=== PATIENT | female | born 1960 | race Caucasian/White ===

== ENCOUNTER → 2019-04-03 10:13 | Outpatient (BNVA) | payer MEDICARE, SELFPAY | PROVIDERS: Family Provider Nurse Practitioner; PCP Nurse Practitioner; Visit Provider Nurse Practitioner | DX: M54.40 Lumbago with sciatica, unspecified side (principal); M25.511 Pain in right shoulder; F17.210 Nicotine dependence, cigarettes, uncomplicated; Z79.891 Long term (current) use of opiate analgesic | CPT/HCPCS: 99214 ==

== ENCOUNTER → 2019-07-28 08:12 | Outpatient (BNVA) | payer MEDICARE, SELFPAY | PROVIDERS: Family Provider Nurse Practitioner; PCP Family Medicine; Visit Provider Anesthesiology | DX: M54.41 Lumbago with sciatica, right side (principal); M54.42 Lumbago with sciatica, left side; F17.210 Nicotine dependence, cigarettes, uncomplicated; Z79.891 Long term (current) use of opiate analgesic | CPT/HCPCS: 99213; 99214 ==

== ENCOUNTER 2019-08-03 07:07 | Outpatient (CLI) | payer MEDICARE, SELFPAY ==
--- NOTE | 2019-08-03 13:03 | PFTS_ITS ---
Date of Study:08/03/19 Date of Dictation: MECHANICS: Forced vital capacity (FVC) is normal. Forced expiratory volume in one second (FEV1) is normal. FEV1/FVC is normal. FLOW VOLUME LOOP: Normal. LUNG VOLUMES: Total lung capacity (TLC) is normal. Residual volume (RV) is normal. DIFFUSING CAPACITY FOR CARBON MONOXIDE: Mildly reduced. INTERPRETATION: The pulmonary function tests are normal. There is no significant postbronchodilator response. Lung volumes are normal. Gas exchange (DLCO) is mildly reduced. MTDD
== END 2019-08-03 07:08 | disposition home or self-care (01) ==
LOC: RT 07:12
PROVIDERS: Family Provider Nurse Practitioner; PCP Family Medicine; Visit Provider Internal Medicine Critical Care Medicine
DX: J44.9 Chronic obstructive pulmonary disease, unspecified (principal)
CPT/HCPCS: 94060; 94726; 94729; G0297; J7611

== ENCOUNTER 2019-08-03 07:14 | Outpatient (CLI) | payer MEDICARE, SELFPAY ==
--- NOTE | 2019-08-03 07:24 | CT_ITS ---
WS: [id number] CT LUNG CANCER SCREENING DLP: 66.36 mGy.cm DIvol: 1.97 mGy CLINICAL INFORMATION SCREENING VISIT: Baseline COMPARISON: 09/04/2008 FINDINGS Diagnostic quality: Satisfactory Comments: None. Lung Nodules: 3 adjacent nodules LEFT upper lobe each measuring 2 mm, images 42, 44 of series 3. Rounded solid nodule measuring 5 mm RIGHT lower lobe adjacent to the diaphragm, image 250 of series 3 . Lungs: Hyperinflated lungs with no endobronchial lesions or groundglass opacifications. Heart: Normal size heart with mild increased epicardial fat. Other findings: No adenopathy. Very mild atherosclerosis of aorta. No aneurysm. Pulmonary artery size is equal to the aorta. There are a few scattered coronary artery calcifications. Small hiatal hernia . Prior cholecystectomy. Mild thoracic spondylosis. CT/CT lung screening [id number] IMPRESSION: LUNG-RADS: 2-Benign Appearance or Behavior FOLLOW UP: 12 Month: Continue annual screening with LDCT
== END 2019-08-03 07:15 | disposition home or self-care (01) ==
LOC: RAD 07:16
PROVIDERS: Family Provider Nurse Practitioner; PCP Family Medicine; Visit Provider Internal Medicine Critical Care Medicine
DX: Z12.2 Encounter for screening for malignant neoplasm of respiratory organs (principal); F17.210 Nicotine dependence, cigarettes, uncomplicated
CPT/HCPCS: G0297

== ENCOUNTER → 2019-10-27 09:12 | Outpatient (BNVA) | payer MEDICARE, SELFPAY | PROVIDERS: Family Provider Nurse Practitioner; PCP Family Medicine; Visit Provider Anesthesiology | DX: M54.41 Lumbago with sciatica, right side (principal); M54.42 Lumbago with sciatica, left side; F17.210 Nicotine dependence, cigarettes, uncomplicated; Z79.891 Long term (current) use of opiate analgesic; Z71.6 Tobacco abuse counseling | CPT/HCPCS: 99214 ==

== ENCOUNTER → 2019-12-22 07:58 | Outpatient (BNVA) | payer MEDICARE, SELFPAY | PROVIDERS: Family Provider Nurse Practitioner; PCP Family Medicine; Visit Provider Anesthesiology | DX: M54.42 Lumbago with sciatica, left side (principal); M54.41 Lumbago with sciatica, right side; Z79.891 Long term (current) use of opiate analgesic; F17.210 Nicotine dependence, cigarettes, uncomplicated; Z71.6 Tobacco abuse counseling | CPT/HCPCS: 99214 ==

== ENCOUNTER → 2020-02-09 09:52 | Outpatient (BNVA) | payer MEDICARE, SELFPAY | PROVIDERS: Family Provider Nurse Practitioner; PCP Family Medicine; Visit Provider Anesthesiology | DX: G89.29 Other chronic pain (principal); M54.42 Lumbago with sciatica, left side; M54.41 Lumbago with sciatica, right side; F17.210 Nicotine dependence, cigarettes, uncomplicated; Z79.891 Long term (current) use of opiate analgesic; Z71.6 Tobacco abuse counseling | CPT/HCPCS: 99213; 99214 ==

== ENCOUNTER → 2020-04-19 07:53 | Outpatient (BNVA) | payer MEDICARE, SELFPAY | PROVIDERS: Family Provider Nurse Practitioner; PCP Family Medicine; Visit Provider Anesthesiology | DX: G89.29 Other chronic pain (principal); M54.41 Lumbago with sciatica, right side; M54.42 Lumbago with sciatica, left side; F17.210 Nicotine dependence, cigarettes, uncomplicated; Z79.891 Long term (current) use of opiate analgesic; Z71.6 Tobacco abuse counseling | CPT/HCPCS: 99213; 99214 ==

== ENCOUNTER → 2020-05-31 08:31 | Outpatient (BNVA) | payer MEDICARE, SELFPAY | PROVIDERS: Family Provider Nurse Practitioner; PCP Family Medicine; Referring Provider Nurse Practitioner Family; Visit Provider Orthopaedic Surgery | DX: M17.0 Bilateral primary osteoarthritis of knee (principal) | CPT/HCPCS: 73560; 73565 ==

== ENCOUNTER → 2020-06-22 07:59 | Outpatient (BNVA) | payer MEDICARE, SELFPAY | PROVIDERS: Family Provider Nurse Practitioner; PCP Family Medicine; Visit Provider Anesthesiology | DX: G89.29 Other chronic pain (principal); M54.41 Lumbago with sciatica, right side; M54.42 Lumbago with sciatica, left side; M25.569 Pain in unspecified knee; F17.210 Nicotine dependence, cigarettes, uncomplicated; Z79.891 Long term (current) use of opiate analgesic | CPT/HCPCS: 99214 ==

== ENCOUNTER → 2020-08-15 10:37 | Outpatient (BNVA) | payer MEDICARE, SELFPAY | PROVIDERS: Family Provider Nurse Practitioner; PCP Family Medicine; Visit Provider Orthopaedic Surgery | DX: Z01.812 Encounter for preprocedural laboratory examination (principal); Z20.822 Contact with and (suspected) exposure to COVID-19 | CPT/HCPCS: 87635 ==

== ENCOUNTER → 2020-08-18 08:09 | Outpatient (BNVA) | payer MEDICARE, SELFPAY | PROVIDERS: Family Provider Nurse Practitioner; PCP Family Medicine; Visit Provider Nurse Practitioner | DX: G89.29 Other chronic pain (principal); M54.42 Lumbago with sciatica, left side; M25.561 Pain in right knee; M25.511 Pain in right shoulder; F17.210 Nicotine dependence, cigarettes, uncomplicated; Z79.891 Long term (current) use of opiate analgesic; Z71.6 Tobacco abuse counseling | CPT/HCPCS: 99214 ==

== ENCOUNTER 2020-08-22 11:01 | Observation (INO) | payer MEDICARE, SELFPAY ==
[2020-08-15 10:05] VITALS: BMI 41.1
--- NOTE | 2020-08-15 10:39 | ANES.PREANE2 ---
Pre-Anesthetic Assessment Pre-Anesthetic Assessment: Height/Weight: Height 1.55 m Weight 98.883 kg Preop Diagnosis: knee pain Proposed Procedure: Operation Date: 08/22/20 09:30 Proposed Procedures p Total Knee Arthroplasty 53863 M17.11(Right) - Ld Sullivan MD Familial anesthetic complications: PONV Social: Social History: Tobacco and No alcohol Exam: Pre-Anes Outpt Exam: alert, oriented x 3, clear to auscultation bilaterally and regular rate & rhythm Airway: Cervical ROM: WNL MP: 2 Dentition: False Pulmonary: Pulmonary: COPD (2 L NC at night, up to 3 L at times) CV/HEM: CV/HEM: Angina (Stable) (atypical) Comments: Dr. Quintanilla: Since the last visit, patient had a myocardial perfusion imaging and echocardiogram. The echocardiogram revealed normal LV size ejection fraction with no significant wall motion normalities. The myocardial perfusion imaging revealed no evidence of ischemia. Metabolic: Metabolic: DM, Hyperlipidemia and Morbid obesity Anesthetic Plan: ASA status: 3 Anesthesia: Regional (specify below) (spinal + adductor nerve block) Risk of > 500 ml blood loss (7ml/kg in children): No PFSH Anesthesia PFSH: Medical History (Updated 06/22/20 @ 08:24 by Yevs Parsons MD) Atypical chest pain Chronic knee pain Chronic right shoulder pain COPD (chronic obstructive pulmonary disease) Diabetes mellitus Dyslipidemia Encounter for long-term opiate analgesic use Low back pain with radiation Smoker SOB (shortness of breath) Surgical History Hx of cholecystectomy Family History Other Cancer Diabetes Family history of premature coronary artery disease Hypertension Social History Smoking and tobacco status: current every day smoker cigarettes Packs smoked per day: 0.5 Years cigarettes smoked: 50 Alcohol intake: never Lives independently: Yes Household members: family Marital status: Current occupational status: disabled History of recent travel: No Current gender identity: Female Data Anesthesia Cardiac Studies: No Data to Display
[2020-08-15 10:47] LABS: Basophils # 0.1 10^3/uL (0.0-0.1); Basophils % 0.8 %; Eosinophils # 0.3 10^3/uL (0.0-0.8); Eosinophils % 2.7 %; Hematocrit 42.6 % (37.0-47.0); Lymphocytes # 3.6 10^3/uL (0.8-4.8); Lymphocytes % 38.3 %; Mean Corpuscular HGB Conc 32.9 g/dL (30.0-36.0); Mean Corpuscular Hemoglobin 30.5 pg (28.0-34.0); Mean Corpuscular Volume 92.8 fL (81-99); Mean Platelet Volume 10.1 fL (7.4-10.4); Monocytes # 0.5 10^3/uL (0.2-0.9); Neutrophils # 4.91 10^3/uL (1.8-7.7); Neutrophils % 52.7 %; Nucleated Red Blood Cells % 0 %; Platelet Count 194 10^3/cmm (130-400); Red Blood Count 4.59 10^6/uL (4.1-5.3); Red Cell Distribution Width 13.3 % (12.1-15.1); White Blood Count 9.3 10^3/uL (4.0-10.0)
[2020-08-15 11:10] LABS: Anion Gap 11.4 (5-19); Blood Urea Nitrogen 14 mg/dL (8-23); Calcium 8.7 mg/dL (8.5-10.5); Carbon Dioxide 28 mmol/L (22-29); Chloride 104 mmol/L (98-107); Glomerular Filtration Rate 85.4 mL/min (90-130); Glucose 125 mg/dL (65-115); Osmolality Calculated 290 mOsm/kg (285-295); Potassium 4.4 mmol/L (3.5-5.1); Sodium 139 mmol/L (136-145)
[2020-08-22] VITALS (21 sets, daily range): BP systolic 95–143; BP diastolic 61–87; PULSE 62–97; RESP 16–20; TEMP 36.2–36.7; O2SAT 91–100
[2020-08-22 08:30] LABS: Glucose Point of Care 108 mg/dL (70-110)
[2020-08-22] MEDS: sodium chloride 0.9% 1,000 ML 30 ML IV (08:32)
[2020-08-22] MEDS: gabapentin 300 mg Capsule PO (08:33)
[2020-08-22] MEDS: CELEcoxib 200 mg Capsule 400 MG PO (08:33)
[2020-08-22] MEDS: acetaminophen 500 mg Tablet 1000 MG PO ×3 (08:34→23:48)
[2020-08-22] MEDS: oxyCODONE 20 mg ER (12 HR) Tablet PO (08:34)
[2020-08-22] MEDS: scopolamine 1.5 Patch 1 PATCH TRANSDERMA (09:05)
--- NOTE | 2020-08-22 10:13 | ANES.PROC ---
Anesthesia Procedures Procedure/Date: 08/22/20 Nerve Block ^: Nerve Block 1: Main Anesthesia: spinal anesthesia block Time Out Performed: Yes Consent: requested by attending/covering physician, from patient, risks and benefits reviewed and patient agrees to proceed Nerve block location: adductor canal (right) Anesthesia monitors applied: pulse oximetry, EKG, BP cuff and oxygen Nerve block position: supine Anesthetic Used: ropivicaine 0.5% Amount of anesthesia used (mL): 20 Ultrasound used to: recognize landmarks Nerve Stimulator Used?: No Interscalene/Femoral BLK: 4 stimuplex 21 g needle used for position and inplane approach and visualize local anesthetic spread Injection: neg aspiration of heme Patient Tolerated Procedure: well
[2020-08-22] MEDS: tranexamic acid 1,000 mg/10mL SDV 1000 MG IRRIGATION (10:33)
[2020-08-22] MEDS: EPINEPHrine 1 mg/mL INJ XX (10:34)
[2020-08-22] MEDS: ketorolac 30 mg/mL INJ XX (10:35)
--- NOTE | 2020-08-22 10:51 | XRR_ITS ---
PROCEDURE INFORMATION: Exam: XR Right Knee Exam date and time: 08/22/2020 10:51 AM Age: 60 years old Clinical indication: Device placement; Joint replacement hardware; Prior surgery; Surgery date: Post-operative (0-2 days); Surgery type: Right total knee arthroplasty TECHNIQUE: Imaging protocol: XR Right knee. Views: 1 or 2 views. COMPARISON: CR XR knees AP WB w BI lmt ORTH 05/31/2020 8:38 AM FINDINGS: Bones/joints: Right knee replacement. No fracture or significant effusion. Soft tissues: Normal. XR/XR knee RT 1-2V [id number] IMPRESSION: Satisfactory appearance status post total knee replacement.
--- NOTE | 2020-08-22 10:52 | P.OP_ITS ---
Operative Report Date of procedure: August 22, 2020 Pre-op Diagnosis: Osteoarthritis Right knee Post-op diagnosis: same Post-op Findings: Same Procedure Done: Right total knee arthroplasty Implants: Sonny total knee arthroplasty components were used includin) Size 3 triathalon cruciate retaining femoral component 2) Size 3 Tritanium tibial component 3) Size 3/11 mm thickness CR tibial bearing insert Pathology: none sent Surgeon: Ld Sullivan Anesthesia: Nerve Block (Spinal, adductor canal block) Estimated blood loss (mL): 100 Complications: None Findings: The patient had severe eburnation to wear over the medial femoral condyle and medial tibial plateau Condition: stable Disposition: PACU Brief History: The patient is a 60-year-old female with end-stage osteoarthritis of the right knee. She had significant functional limitations that she could walk no more than a block. Her quality life is affected and she can no longer play with grandchildren. She had failed conservative measures including pain medications. Total knee replacement was chosen to improve pain and function Procedure: The patient was taken to the operating room. Patient was given 1 g of tranexamic acid . The above anesthesia provided by the anesthesia service. A timeout was performed. The patient was prepped and draped in the usual fashion with the lower extremity exposed. A anterior incision was made, midline , from a point proximal to the patella to the distal tibial tubercle. The knee was entered through a medial parapatellar approach. The patella could be displaced laterally and the knee flexed. The patellar fat pad was resected to provide better visibility. Retractors were placed medially and laterally adjacent to the tibial plateau. The femoral canal was drilled in line with the longitudinal axis of the femur. Intramedullary femoral guide for used to make a distal femoral cut in 5 degrees of valgus, resecting 8 mm from the more prominent condyle. Next the extra medullary tibial guide was placed in alignment with the longitudinal axis of the tibia. The cutting guides were set to remove just over 9 mm from the high tibial plateau. The proximal tibia was then cut. The femoral measuring guide was then placed over the distal femur. Rotation was verified checking the relationship of the guide to the condyle and the trochlear groove. The femur was measured and cut for the desired femoral component. The desired tibial baseplate was then chosen. A trial reduction with the femur tibial baseplate and polyethylene was done, assuring that the knee was stable throughout full motion. Ligament balancing nothing more than released the deep medial collateral ligament.The tibia was prepared for the tibial baseplate. The patella displayed minimal wear and articulated well with the trial femoral and tibial components. A decision was made not to resurface the patella. Surfaces were cleaned with a gentamicin/tranexamic acid solution. The femur tibia and patella were then [] into place. The posterior capsule and collateral ligaments were then injected with a solution of 100 mL of 0.2% ropivacaine, 1 mL of a 1:1000 epinephrine solution, and 30 mg of Toradol. Final polyethylene component was then snapped into place into the tibia. The tourniquet was deflated. The tranxanemic acid was left contact with the knee for 5 minutes before the knee was irrigated with saline. The extensor retinaculum was closed with a running 1 Stratafix.. The subcutaneous tissues were closed with 2-0 Vicryl and the skin was closed with a running 3-0 Stratafix. The wound was covered with a Dermabond Prinio dressing. It was covered with 4xrs and a compressive Tubigauae was applied. The patient was taken to recovery room in stable condition.
[2020-08-22] MEDS: ondansetron 2 mg/ML SDV 2 mL 4 MG IVP (11:07)
--- NOTE | 2020-08-22 11:19 | SUR.PHASEI ---
1054 PT AWAKE ALERT ON RA GOOD RESP PT TALKATIVE RIGHT KNEE D/I FIRST ICE TO SITE, X RAY DONE. FAMILY NOTIFIED BY DR GILLIAM 1113 PT ON 3LNC TO KEEPS SATS OVER 90% PT SPINAL LEVEL AT T-12 HOB AT 30 DEGREES, VSS.
--- NOTE | 2020-08-22 11:34 | SUR.PHASEI ---
PT AWAKE ALERT , STILL HOLDING PT TO GIVE REPORT.
--- NOTE | 2020-08-22 13:08 | P.HP_ITS ---
Same Day Surgery H&P Indication for Procedure/HPI DATE OF PROCEDURE: August 22, 2020 CHIEF COMPLAINT/INDICATIONFOR SURGICAL PROCEDURE: 60-year-old female with osteoarthritis right knee unresponsive to conservative measures. She describes significant functional limitations including inability to walk on more than a block and play with her grandchildren. She is admitted for elective right total knee arthroplasty to improve pain and function PREOP DIAGNOSIS: Osteoarthritis Right knee PLANNED PROCEDRUE: Operation Date: 08/22/20 09:30 Proposed Procedures p Total Knee Arthroplasty 29360 M17.11(Right) - Ld Sullivan MD Medications/Allergies* Home Medications Medication Instructions Recorded Confirmed Type bumetanide 1 mg tablet 1 mg PO DAILY tab 03/16/19 08/22/20 History cetirizine 10 mg capsule 10 mg PO QDAY 03/16/19 08/22/20 History lisinopril 2.5 mg tablet 2.5 mg PO QDAY 03/16/19 08/22/20 History methocarbamol 750 mg tablet 750 mg PO TID 03/16/19 08/22/20 History montelukast 10 mg tablet 10 mg PO .BEDTIME tab 03/16/19 08/22/20 History spironolactone 50 mg tablet 50 mg PO BID 03/16/19 08/22/20 History albuterol sulfate 2.5 mg INHALATION Q6H 04/03/19 08/18/20 History atorvastatin 20 mg tablet 40 mg PO QDAY tab 04/03/19 08/22/20 History Allergies/Adverse Reactions Allergy/AdvReac Type Severity Reaction Status Date / Time codeine Allergy NAUSEA, Verified 08/22/20 08:05 VOMITING fentanyl Allergy DYSPNEA, Verified 08/22/20 08:05 SOB morphine Allergy HX OF Verified 08/22/20 08:05 OVERDOSE tramadol Allergy NAUSEA, Verified 08/22/20 08:05 VOMITING Pertinent History/Comorbid Conditions* Medical History (Updated 06/22/20 @ 08:24 by Yves Parsons MD) Atypical chest pain Chronic knee pain Chronic right shoulder pain COPD (chronic obstructive pulmonary disease) Diabetes mellitus Dyslipidemia Encounter for long-term opiate analgesic use Low back pain with radiation Smoker SOB (shortness of breath) Surgical History (Updated 04/03/19 @ 11:52 by CAMMIE Cabrales) Hx of cholecystectomy Family History (Updated 03/16/19 @ 10:28 by Yesy Pabon RN) Diabetes Family history of premature coronary artery disease Cancer Hypertension Social History Smoking and tobacco status: current every day smoker (1 pck) cigarettes Packs smoked per day: 0.5 Years cigarettes smoked: 50 Alcohol intake: never Lives independently: Yes Household members: family Marital status: Current occupational status: disabled History of recent travel: No Current gender identity: Female Pertinent Exam Findings alert, oriented x 3, clear to auscultation bilaterally, regular rate & rhythm and operative site marked Recommendations Surgery/Procedure today Coding Level of Care Code Acute Electronic Prepress Operator for Alec Luis
[2020-08-22] MEDS: atorvastatin 40 mg Tablet PO (14:19)
[2020-08-22] MEDS: lisinopril 2.5 mg Tablet PO (14:19)
--- NOTE | 2020-08-22 15:31 | ANE.PACU2 ---
Inpatient post-anesthesia follow up: Airway intact: Yes Vital signs: Temperature 98.0 F Pulse Rate 73 Respiratory Rate 18 Blood Pressure 112/66 Pulse Oximetry 95 Oxygen Delivery Me thod Room Air Oxygen Flow Rate 3 Fraction of Inspir ed Oxygen Hydration adequate: Yes Nausea and vomiting: No Pain level: 1 Mental status: Baseline
[2020-08-22] MEDS: oxyCODONE 5 mg IR Tab/Cap PO ×2 (16:39→23:47)
--- NOTE | 2020-08-22 18:30 | PC.NURSE ---
PATIENT WAS COMPLAINING THAT SHE FELT LIKE HER CATHETER WASN'T DRAINING PROPERLY. THIS NURSE FLUSHED PATIENT'S NG CATHETER. CATHETER FLUSHED EASILY AND I WAS ABLE TO DRAW BACK ALL THAT I PUT IN. CATHETER DRAINING WELL AT THIS TIME.
[2020-08-22] MEDS: sodium chloride 0.9% 1,000 ML 100 ML IV (19:22)
[2020-08-22] MEDS: sennosides-docusate Tablet 2 TAB PO (19:26)
[2020-08-22] MEDS: spironolactone 25 mg Tablet 50 MG PO (19:27)
[2020-08-22] MEDS: pregabalin 75 mg Capsule PO (20:54)
[2020-08-22] MEDS: CELEcoxib 200 mg Capsule PO (20:54)
[2020-08-22] MEDS: mupirocin oint 22 gm 1 APPLIC TOPICAL (20:54)
[2020-08-22] MEDS: methocarbamol 750 mg Tablet PO (20:54)
[2020-08-23] VITALS (7 sets, daily range): BP systolic 97–98; BP diastolic 56–62; PULSE 66–82; RESP 16–18; TEMP 36.7–36.9; O2SAT 93–95
[2020-08-23 02:41] LABS: Hemoglobin 11.7 g/dL (11.5-15.3)
[2020-08-23] MEDS: sodium chloride 0.9% 1,000 ML 100 ML IV (04:47)
[2020-08-23] MEDS: oxyCODONE 5 mg IR Tab/Cap PO (08:21)
[2020-08-23] MEDS: acetaminophen 500 mg Tablet 1000 MG PO (08:22)
[2020-08-23] MEDS: lisinopril 2.5 mg Tablet PO (08:59)
[2020-08-23] MEDS: sennosides-docusate Tablet 2 TAB PO (09:00)
[2020-08-23] MEDS: bumetanide 1 mg Tablet PO (09:00)
[2020-08-23] MEDS: spironolactone 25 mg Tablet 50 MG PO (09:01)
[2020-08-23] MEDS: CELEcoxib 200 mg Capsule PO (09:01)
[2020-08-23] MEDS: methocarbamol 750 mg Tablet PO (09:01)
[2020-08-23] MEDS: atorvastatin 40 mg Tablet PO (09:01)
[2020-08-23] MEDS: pregabalin 75 mg Capsule PO (09:02)
--- NOTE | 2020-08-23 09:44 | PC.CHAP ---
Pastoral Care Encounter/Spiritual Assessment Type of Contact [] Declined sr. media manager visit [] Patient/Family/Request visit [] Outpatient visit [] Follow-up visit [] Physician referral [] Code/Alert [x] Routine visit [] Staff referral [] Actively dying [] Patient sleeping [] Family support [] [] Out of room [] Palliative care [] [x] Receiving care in room [] Pre-surgical visit [] Trauma [] Long length of stay [] ICU visit [] Other: Relational/Emotional Strength [] Patient feels connected with others/family/visitors/staff [] Distress [] Loneliness/isolation [] Abandonment Spirituality of Patient [] Person of [place] [] Attends Confucianist of their [place] [] Believes in Prayer [] Reads Bible or Holiness materials [] There are Spiritual issues to be addressed Electric Track Switch Maintainer Interventions [] Prayer [] Active listening [] Non-anxious presence [] Spiritual/emotional support [] Crisis/trauma care [] Spiritual counseling [] Bereavement support [] Provided bereavement packet [] Provided Bible/devotional materials [] Provided toy/stuffed animal, coloring book to patient or family member [] Provided Communion [] Anointing/[place] [] Salvation [] Completed spiritual assessment [] Other: Impact on Illness or Injury [] Angry [] Fearful [] Anxious [] Often cries [] Exhaustion [] Unable to work [] Unable to attend roman catholic [] Unable to walk/stand [] Unable to read [] Unable to drive [] Unable to eat/drink [] Unable to sleep [] Unable to be with family [] Patient intubated [] Other: Summary Time spent with patient
--- NOTE | 2020-08-23 10:50 | PC.NURSE ---
Discharged 10:45 After Iv was discontinued pt dressed and transferred via wheelchair to family waiting at entrance Pt tolerated without difficulty
--- NOTE | 2020-08-23 12:25 | PM.DCS ---
Discharge Providers Date of Admission: 08/22/20 11:01 Date of Discharge: August 23, 2020 Attending Provider at Admission: Ld Sullivan MD Attending Provider at Discharge: Ld Sullivan MD Primary Care Provider: Reynold Begum MD Diagnoses at Discharge Discharge Diagnosis (1) Status post knee replacement: Status: Acute (2) Osteoarthritis of right knee: Status: Resolved Reason for Visit Reason for Visit: total knee arthoplasty Hospital Course Hospital Course Ms. Dubose was admitted after an elective right total knee arthroplasty. She did well postoperatively. She has begun on aspirin and foot pumps for DVT prophylaxis. She remained hemodynamically stable. She made excellent progress with therapy and was stable for discharge on the first postoperative day. Physical Exam Narrative: EXAM NARRATIVE: On the day of discharge his knee incision was clean. They had no drainage. There is minimal swelling in the thigh and knee and the calf. No distal neurovascular deficits were noted Urinary Catheter Management^: Reynoso: Cath Placed During This Visit: yes, but has since been removed by the nurse Reason for Continuing Indwelling Catheter: Decision to DC Catheter Urinary Catheter Date of Insertion: 08/22/20 Urinary Catheter Time of Insertion: 09:30 Date Urinary Catheter Removed: 08/23/20 Time Urinary Catheter Discontinued: 05:00 Discharge Data Data Completed and Pending: Completed Studies During Hospitalization Category Date Time Status XR knee RT 1-2V 7 3560 Routine Exams 08/22/20 10:51 Completed Labs from last 24 hours 08/23/20 02:07 Hgb 11.7 Vitals: Last Vital Signs Temp 98.1 F 08/23/20 03:49 Pulse 82 08/23/20 11:56 Resp 17 08/23/20 11:56 BP 98/56 08/23/20 03:49 Pulse Ox 93 08/23/20 11:56 Discharge Plan Discharge Patient Disposition: Home Condition: Stable Prescriptions: New celecoxib 200 mg Capsule 200 mg PO Q12H 14 Days Qty: 28 RF: 0 acetaminophen 500 mg Tablet 1,000 mg PO Q8H 14 Days Qty: 84 RF: 0 oxycodone 5 mg Tablet 5 mg PO Q4H PRN (Reason: Moderate Pain) 7 Days Qty: 30 RF: 0 aspirin 325 mg Tablet,Delayed Release (Dr/Ec) 325 mg PO DAILY Qty: 30 RF: 0 Continued bumetanide 1 mg tablet 1 mg PO DAILY RF: 0 Allergy Relief (cetirizine) 10 mg capsule 10 mg PO QDAY RF: 0 lisinopril 2.5 mg tablet 2.5 mg PO QDAY RF: 0 methocarbamol 750 mg tablet 750 mg PO TID RF: 0 spironolactone 50 mg tablet 50 mg PO BID RF: 0 montelukast 10 mg tablet 10 mg PO .BEDTIME RF: 0 atorvastatin 20 mg tablet 40 mg PO QDAY RF: 0 mupirocin 2 % ointment 1 applic topical BID Qty: 22 RF: 0 hydrocodone-acetaminophen 5-325 mg tablet 1 tab PO .5 times a day PRN (Reason: pain) 30 Days Qty: 150 RF: 0 albuterol sulfate 2.5 mg /3 mL (0.083 %) solution for nebulization 2.5 mg INHALATION Q6H RF: 0 pregabalin [Lyrica] 75 mg capsule 75 mg PO TID 30 Days Qty: 90 RF: 1 fluticasone propionate 50 mcg/actuation spray,suspension See Rx Instructions .ROUTE .COMPLEX Qty: 16 RF: 3 fluticasone propion-salmeterol [Advair Diskus] 250-50 mcg/dose blister with device 1 inh inhalation BID Qty: 60 RF: 3 Discharge Orders: Discharge Order (Routine); Ordered 08/23/20 Ordered By: Ld Sullivan Other Ambulatory Orders: DME: Walker (Order) Location: None Selected Ordered By: Ld Sullivan Referrals: Ld Sullivan MD [Physician] - 08/26/20 8:00 am Discharge Diet: Advance as tolerated Discharge Activity: Limit activity as instructed Patient Instructions: Acetaminophen (By mouth), Oxycodone, Rapid Release (By mouth), Celecoxib (By mouth), Total Knee Replacement (DC), How to Choose and Use a Walker (GEN), Opioid Safety Activity Restrictions/Additional Instructions: Okay to shower Keep Tubigauze sleeve in place for swelling. Okay to remove for hygiene. Apply FirstIce up to 20 min/hr for pain and swelling Take Celebrex twice a day for the next 15 days for pain , discontinue other anti-inflammatories Take Tylenol 500mg (1-2 tabs) as needed 3 times a day for mild pain take oxycodone for breakthrough pain. Exercises per physical therapy. May weight-bear as tolerated on total knee arthroplasty Discharge Attestations Time Spent in Discharge Care*: other Quality Metrics Clinical Quality Measures During this hospital stay, did patient experience: None Coding Level of Care Code Acute [facility] note Diagnoses Status post knee replacement Z96.659 Osteoarthritis of right knee M17.11
--- NOTE | 2020-08-26 09:33 | PC.RESP ---
SMOKING CESSATION AND PULMONARY REHAB INFORMATION SENT TO PATIENT.
== END 2020-08-23 11:00 | disposition home or self-care (01) ==
LOC: MEDSURG 11:01
PROVIDERS: Anesthesiology; Admitting Provider Orthopaedic Surgery; PCP Family Medicine; Visit Provider Orthopaedic Surgery
PROC: (CPT 27447; principal; 2020-08-22 09:10)
DX: M17.11 Unilateral primary osteoarthritis, right knee (principal); J44.9 Chronic obstructive pulmonary disease, unspecified; E11.9 Type 2 diabetes mellitus without complications; E78.5 Hyperlipidemia, unspecified; F17.210 Nicotine dependence, cigarettes, uncomplicated; Z82.49 Family history of ischemic heart disease and other diseases of the circulatory system; Z83.3 Family history of diabetes mellitus
CPT/HCPCS: 27447; 36415; 36416; 64447; 73560; 73562; 76942; 80048; 82962; 85018; 85025; 94640; 97116; 97161; 97165; C1776; G0378; J0171; J0690; J1580; J1885; J2250; J2405; J2704; J2795; J7030; J7611

== ENCOUNTER → 2020-10-13 08:31 | Outpatient (BNVA) | payer MEDICARE, SELFPAY | PROVIDERS: PCP Family Medicine; Visit Provider Nurse Practitioner | DX: G89.29 Other chronic pain (principal); M54.40 Lumbago with sciatica, unspecified side; M25.511 Pain in right shoulder; M17.11 Unilateral primary osteoarthritis, right knee; M25.551 Pain in right hip; F17.210 Nicotine dependence, cigarettes, uncomplicated; Z96.659 Presence of unspecified artificial knee joint; Z79.891 Long term (current) use of opiate analgesic; Z71.6 Tobacco abuse counseling | CPT/HCPCS: 99214 ==

== ENCOUNTER → 2020-10-18 07:54 | Outpatient (BNVA) | payer MEDICARE, SELFPAY | PROVIDERS: PCP Family Medicine; Visit Provider Orthopaedic Surgery | DX: Z48.89 Encounter for other specified surgical aftercare (principal); Z96.651 Presence of right artificial knee joint | CPT/HCPCS: 73560; 73565 ==

== ENCOUNTER → 2020-12-22 08:28 | Outpatient (BNVA) | payer MEDICARE, SELFPAY | PROVIDERS: PCP Family Medicine; Visit Provider Anesthesiology | DX: G89.29 Other chronic pain (principal); M54.50 Low back pain, unspecified; M25.561 Pain in right knee; Z98.890 Other specified postprocedural states; Z96.651 Presence of right artificial knee joint; F17.210 Nicotine dependence, cigarettes, uncomplicated; Z79.891 Long term (current) use of opiate analgesic | CPT/HCPCS: 99214 ==

== ENCOUNTER → 2021-02-16 08:16 | Outpatient (BNVA) | payer MEDICARE, SELFPAY | PROVIDERS: PCP Family Medicine; Visit Provider Anesthesiology | DX: G89.29 Other chronic pain (principal); M54.40 Lumbago with sciatica, unspecified side; M17.11 Unilateral primary osteoarthritis, right knee; F17.210 Nicotine dependence, cigarettes, uncomplicated; Z79.891 Long term (current) use of opiate analgesic | CPT/HCPCS: 99214 ==

== ENCOUNTER 2022-06-26 07:01 | Emergency (ER) | payer MEDICARE, SELFPAY ==
[2022-06-26] VITALS (11 sets, daily range): BP systolic 122–178; BP diastolic 69–93; PULSE 83–114; RESP 14–20; TEMP 36.7; O2SAT 95–98; BMI 37.4
--- NOTE | 2022-06-26 07:30 | XR_ITS ---
WS: [id number] XR chest 1V portable [id number] REASON FOR EXAM: cough, congestion FINDINGS: Hazy opacification in the left upper lung field. Possible widening of the upper mediastinum. Possible prominence of the left hilar region. The right chest is unremarkable. Degenerative changes in the shoulder joints and within the thoracic spine. XR/XR chest 1V portable [id number] IMPRESSION: Volume loss in the left upper lobe, trauma long segment likely. Potential media stinal widening and hilar prominence suggest central obstruction. If patient gray s significant smoking history recommend CT scan of the chest with intravenous c ontrast to evaluate for left chest neoplasm.
--- NOTE | 2022-06-26 07:32 | ED_ITS ---
Documented by User: CAMMIE Quintanilla 06/26/22 11:02 HPI - SOB/Dyspnea General: Chief Complaint: Shortness of Breath/Dyspnea Stated Complaint: sob Time Seen by Provider: 06/26/22 07:10 Source: patient Mode of arrival: ambulatory Limitations: no limitations History of Present Illness: HPI Narrative: Patient is a 62-year-old female presents to ED today with a complaint of cough, chest congestion, and shortness of breath. Patient states she has been sick for approximately 3 weeks now. She states she has been [facility] and was placed on a 5-day course of Levaquin without much improvement. She states she went back and was diagnosed with double pneumonia by clinical exam (never had CXR) and placed on Augmentin. Patient states she is also doing rescue albuterol inhalers and albuterol nebulizers. She states she is also on a ta pering course of prednisone (30 mg and tapering down). Patient has a known history of COPD. She states she is also on Trelegy. She states she takes Bumex daily for swelling to her legs-states this is not changed recently. Patient continues to smoke daily. No fevers. She chronically wears O2 at night. She has not had to wear during the day during this illness. MD elicited complaint: shortness of breath and cough Pertinent past history: COPD Onset (ago): week(s) Timing: constant Severity: moderate Exacerbating factors: exertion and coughing Relieving factors: nothing Known history of: COPD Associated symptoms: Reports chest congestion; Deny abdominal pain, chest pain, dizziness, extremity pain, fever(s), hemoptysis, lightheadedness, nausea, palpitations, syncope or vomiting Related Data: Home oxygen amount: 2 liters (only at night) Review of Systems Const: Denies: fever(s), chills, body aches, fatigue or malaise Eyes: Denies: change in vision or blurry vision ENMT: Denies: throat pain, odynophagia, nasal discharge or nasal congestion Card: Denies: chest pain, palpitations, irregular heart rhythm, lightheade dness, syncope, pre-syncope or dyspnea on exertion Resp: Reports: dyspnea, productive cough and chest congestion; Denies: wheezing, pain on inspiration or hemoptysis GI: Denies: abdominal pain, nausea, vomiting, heartburn or diarrhea : Denies: flank pain or dysuria Musc: Denies: neck pain, back pain, extremity pain, extremity swelling or joint pain Skin/Breast: Denies: rash Neuro: Denies: headache(s), numbness in extremities, weakness in extremities, sensory changes or dizziness PFSH ED PFSH: Medical History Atypical chest pain Chronic knee pain Chronic right shoulder pain Cigarette smoker motivated to quit COPD (chronic obstructive pulmonary disease) Diabetes mellitus Dyslipidemia Encounter for long-term opiate analgesic use Low back pain with radiation Smoker SOB (shortness of breath) Surgical History Hx of cholecystectomy Family History Other Cancer Diabetes Family history of premature coronary artery disease Hypertension Social History Smoking and tobacco status: current every day smoker cigarettes Packs smoked per day: 0.5 Years cigarettes smoked: 50 Alcohol intake: never Substance/Drug Use: never Lives independently: Yes Household members: family Marital status: Current occupational status: disabled Do you think of yourself as: Straight/Heterosexual Current gender identity: Female Physical Exam Const: COMMON NORMALS: no acute distress, patient oriented x3, no limitations and alert GENERAL APPEARANCE: cooperative NUTRITIONAL APPEARANCE: overweight ORIENTATION/CONSCIOUSNESS: Yes awake, Yes oriented to person, Yes oriented to place and Yes oriented to time HENMT: COMMON NORMALS: normocephalic and atraumatic HEAD & SCALP: normal to inspection, normocephalic and atraumatic FACE & SINUS: normal facial exam THROAT: posterior oropharynx normal, tonsils normal and uvula midline Eye: GENERAL EYE: appearance normal, both eyes and all related structures Neck/C-Spine: COMMON NORMALS: full ROM, no lymphadenopathy and no meningeal signs Chest: COMMONS NORMALS: normal inspection of the chest and normal palpation of entire chest wall Resp: COMMON NORMALS: normal respiratory effort, No retractions and No use of accessory muscles AUSCULTATION: rhonchi throughout Cardio: COMMON NORMALS: regular rate and regular rhythm RATE: regular rate RHYTHM: regular rhythm Extremity: COMMON NORMALS: normal to inspection, full ROM, no joint enlargement, no clubbing, cyanosis or edema, no calf tenderness and no pedal edema GENERAL: Yes normal exam except as noted Neuro: MALLORIE COMA SCALE: document GCS findings Mallorie coma scale eye opening: Spontaneous Mallorie coma scale verbal response: Orientated Mallorie coma scale motor response: Obey commands Mallorie coma scale total score: 15 COMMON NORMALS: patient oriented x3, moves all extremities, no focal motor deficits and no sensory deficits noted SENSORIUM/ORIENTATION: Yes alert, Yes oriented to person, Yes oriented to place and Yes oriented to time MENINGEAL SIGNS: Yes no meningeal signs Skin: COMMON NORMALS: no rashes or lesions noted GENERAL SKIN EXAM: no rashes or lesions noted Course Vital Signs: Vital signs: Vital Signs Temperature 98.0 F 06/26/22 07:09 Pulse Rate 90 06/26/22 09:00 Respiratory Rate 14 06/26/22 09:00 Blood Pressure 128/80 06/26/22 10:50 Pulse Oximetry 98 06/26/22 09:30 Oxygen Delivery Me thod Room Air 06/26/22 08:02 MDM - SOB/Dyspnea Medical Decision Making Patient here with complaints of cough, congestion, shortness of breath over the past 3 weeks or so. Her vital signs are stable. She is satting at 98% on room air. She does have home oxygen she uses only at night. Blood work overall is fairly unremarkable. CXR is abnormal thus CT chest was obtained. Unfortunately it appears patient has a large neoplasm affecting her left upper lobe with mediastinal/lymph node involvement and possible bony mets. Spoke to Dr. Antony who agrees with plan to get her set up with Dr. Lara for bronchoscopy and biopsy and then follow-up with oncology. Patient is already on antibiotics, Trelegy, and steroids. Place her on ipratropium she can also use in addition to her albuterol in her nebulizer. Return to ED precautions given. She can use her home O2 as needed. Lab Data 06/26/22 08:00 06/26/22 08:00 Labs/Radiology: Radiology Impressions Chest X-Ray 06/26/22 07:30 IMPRESSION: Volume loss in the left upper lobe, trauma long segment likely. Potential mediastinal widening and hilar prominence suggest central obstruction. If pa tient has significant smoking history recommend CT scan of the chest with intravenous contrast to evaluate for left chest neoplasm. Chest CT 06/26/22 08:54 IMPRESSION: 1. Large soft tissue consolidation LEFT upper lobe is a combination of atelectasis and proximal neoplasm encasing the proximal LEFT upper lobe bronchus. LEFT upper lobe bronchial wall thickening to 2.1 cm. Recommend endoscopy for sampling of tumor. 2. Mediastinal and hilar lymphadenopathy. Large clusters of lymph nodes new since 2019. 3. 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 4. Aberrant RIGHT subclavian artery. 5. Prior cholecystectomy. 6. Abnormal LEFT second rib. Possible involvement of the first LEFT rib. Sclerotic with bony expansion. Tumor involvement suspected. Recommend PET/CT imaging. Laboratory Results WBC 15.5 10^3/uL (4.0-10.0) H 06/26/22 08:00 RBC 4.74 10^6/uL (4.1-5.3) 06/26/22 08:00 Hgb 14.2 g/dL (11.5-15.3) 06/26/22 08:00 Hct 43.0 % (37.0-47.0) 06/26/22 08:00 MCV 90.7 fl (81-99) 06/26/22 08:00 MCH 30.0 pg (28.0-34.0) 06/26/22 08:00 MCHC 33.0 g/dL (30.0-36.0) 06/26/22 08:00 RDW 14.3 % (12.1-15.1) 06/26/22 08:00 Plt Count 234 10^3/cmm (130-400) 06/26/22 08:00 MPV 9.0 fL (7.4-10.4) 06/26/22 08:00 Neut % (Auto) 63.2 % 06/26/22 08:00 Lymph % (Auto) 28.7 % 06/26/22 08:00 Villalba % (Auto) 5.5 % 06/26/22 08:00 Eos % (Auto) 1.3 % 06/26/22 08:00 Baso % (Auto) 0.3 % 06/26/22 08:00 Neut # (Auto) 9.84 10^3/uL (1.8-7.7) H 06/26/22 08:00 Lymph # (Auto) 4.5 10^3/uL (0.8-4.8) 06/26/22 08:00 Villalba # (Auto) 0.9 10^3/uL (0.2-0.9) 06/26/22 08:00 Eos # (Auto) 0.2 10^3/uL (0.0-0.8) 06/26/22 08:00 Baso # (Auto) 0.0 10^3/uL (0.0-0.1) 06/26/22 08:00 Nucleated RBC % (auto) 0 % 06/26/22 08:00 Nucleated RBCs # 0.0 /100WBC 06/26/22 08:00 Sodium 138 mmol/L (136-145) 06/26/22 08:00 Potassium 3.1 mmol/L (3.5-5.1) L 06/26/22 08:00 Chloride 98 mmol/L (98-107) 06/26/22 08:00 Carbon Dioxide 29 mmol/L (22-29) 06/26/22 08:00 Anion Gap 14.1 (5-19) 06/26/22 08:00 BUN 10 mg/dL (8-23) 06/26/22 08:00 Creatinine 0.7 mg/dL (0.5-0.9) 06/26/22 08:00 GFR Calculation 84.8 mL/min (90-130) L 06/26/22 08:00 Glucose 107 mg/dL (65-115) 06/26/22 08:00 Calculated Osmolality 286 mOsm/kg (285-295) 06/26/22 08:00 Calcium 9.3 mg/dL (8.5-10.5) 06/26/22 08:00 Total Bilirubin 0.3 mg/dL (0.15-1.2) 06/26/22 08:00 AST 14 U/L (0-32) 06/26/22 08:00 ALT 20 U/L (0-33) 06/26/22 08:00 Alkaline Phosphatase 90 U/L (35-105) 06/26/22 08:00 Total Protein 6.6 g/dL (6.6-8.7) 06/26/22 08:00 Albumin 4.0 g/dL (3.5-5.2) 06/26/22 08:00 Globulin 2.6 g/dL (1.3-4.6) 06/26/22 08:00 Procalcitonin 0.05 ng/mL (0-0.5) 06/26/22 08:00 Nasal Influ A H1 2009 PCR Not detected (NOT DETECT) 06/26/22 08:25 Adenovirus (PCR) Not detected (NOT DETECT) 06/26/22 08:25 C. pneumoniae DNA (PCR) Not detected (NOT DETECT) 06/26/22 08:25 Coronavirus 229E (PCR) Not detected (NOT DETECT) 06/26/22 08:25 Human Metapneumovir PCR Not detected (NOT DETECT) 06/26/22 08:25 Influenza A (H1) PCR Not detected (NOT DETECT) 06/26/22 08:25 Influenza A (H3) PCR Not detected (NOT DETECT) 06/26/22 08:25 Influenza Type A (PCR) Not detected (NOT DETECT) 06/26/22 08:25 Influenza Type B (PCR) Not detected (NOT DETECT) 06/26/22 08:25 M. pneumoniae (PCR) Not detected (NOT DETECT) 06/26/22 08:25 Parainfluenza 1 (PCR) Not detected (NOT DETECT) 06/26/22 08:25 Parainfluenza 2 (PCR) Not detected (NOT DETECT) 06/26/22 08:25 Parainfluenza 3 (PCR) Not detected (NOT DETECT) 06/26/22 08:25 Parainfluenza 4 (PCR) Not detected (NOT DETECT) 06/26/22 08:25 RSV Type A (PCR) Not detected (NOT DETECT) 06/26/22 08:25 RSV Type B (PCR) Not detected (NOT DETECT) 06/26/22 08:25 Entero/Rhino (PCR) Not detected (NOT DETECT) 06/26/22 08:25 SARS-CoV-2 (PCR) Not detected (NOT DETECT) 06/26/22 08:25 Discharge Plan Discharge Patient Disposition: Home Clinical Impression: Lung malignancy Qualifiers: Laterality: left Lung location: overlapping sites Qualified Code(s): C34.82 - 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 Condition: Stable Prescriptions: New ipratropium bromide 0.02 % solution 2.5 ml inhalation Q8H PRN (Reason: shortness of breath or wheezing) Qty: 62.5 0RF No Action bumetanide 1 mg tablet 1 mg PO DAILY Allergy Relief (cetirizine) 10 mg capsule 10 mg PO QDAY lisinopril 2.5 mg tablet 2.5 mg PO QDAY methocarbamol 750 mg tablet 750 mg PO TID spironolactone 50 mg tablet 50 mg PO BID montelukast 10 mg tablet 10 mg PO .BEDTIME atorvastatin 20 mg tablet 40 mg PO QDAY ondansetron HCl [Zofran] 4 mg tablet 4 mg PO Q8H PRN (Reason: nausea and vomiting) Qty: 14 0RF albuterol sulfate 2.5 mg /3 mL (0.083 %) solution for nebulization 2.5 mg INHALATION Q6H hydrocodone-acetaminophen 10-325 mg tablet 1 tab PO Q8H PRN (Reason: pain) 30 Days Qty: 90 0RF Rx Instructions: Fill on or after 02/25/21 hydrocodone-acetaminophen 10-325 mg tablet 1 tab PO Q8H PRN (Reason: pain) 30 Days Qty: 90 0RF Rx Instructions: Fill on or after 03/27/21 pregabalin [Lyrica] 75 mg capsule 75 mg PO TID 30 Days Qty: 90 1RF fluticasone propion-salmeterol [Advair Diskus] 250-50 mcg/dose blister with device 1 inh inhalation BID Qty: 60 0RF Rx Instructions: NEEDS APPT PRIOR TO FURTHER REFILLS fluticasone propionate 50 mcg/actuation spray,suspension See Rx Instructions .ROUTE .COMPLEX Qty: 16 3RF Dose Instruction: Use 1 spray(s) in each nostril twice daily Rx Instructions: Use 1 spray(s) in each nostril twice daily aspirin 325 mg Tablet,Delayed Release (Dr/Ec) 325 mg PO DAILY Qty: 30 0RF Discharge Orders: Discharge ED (Routine); Ordered 06/26/22 Ordered By: Tanya Roman Referrals: Reynold Begum MD [Primary Care Provider] - Activity Restrictions/Additional Instructions: As we discussed you may continue all of your current medications. I have added another medication you can use in your nebulizer. Unfortunately your CT scan today showing findings most likely consistent with lung malignancy/neoplasm. Case management should contact you shortly to set you up with your urgent follow-up appointment with pulmonology. They will also assist you in setting up an appointment with oncology most likely following your lung tumor biopsy/pathology report. You may use your home oxygen as needed for shortness of breath. You need to return to the emergency department for worsening shortness of breath, difficulty breathing, severe chest pains, fevers, generally feeling worse or unwell, or any other concerns you may have. Coding Level of Care Code ED Har[facility] Placer for Chg Fwd Documented by User: Walt Antony DO 06/26/22 11:36 HPI - SOB/Dyspnea General: Chief Complaint: Shortness of Breath/Dyspnea Stated Complaint: sob Time Seen by Provider: 06/26/22 07:10 PFSH ED PFSH: Medical History Atypical chest pain Chronic knee pain Chronic right shoulder pain Cigarette smoker motivated to quit COPD (chronic obstructive pulmonary disease) Diabetes mellitus Dyslipidemia Encounter for long-term opiate analgesic use Low back pain with radiation Smoker SOB (shortness of breath) Surgical History Hx of cholecystectomy Family History Other Cancer Diabetes Family history of premature coronary artery disease Hypertension Social History Smoking and tobacco status: current every day smoker cigarettes Packs smoked per day: 0.5 Years cigarettes smoked: 50 Alcohol intake: never Substance/Drug Use: never Lives independently: Yes Household members: family Marital status: Current occupational status: disabled Do you think of yourself as: Straight/Heterosexual Current gender identity: Female Physical Exam Neuro: MALLORIE COMA SCALE: document GCS findings Mallorie coma scale total score: 15 Course Vital Signs: Vital signs: Vital Signs Temperature 98.0 F 06/26/22 07:09 Pulse Rate 90 06/26/22 09:00 Respiratory Rate 14 06/26/22 09:00 Blood Pressure 128/80 06/26/22 10:50 Pulse Oximetry 98 06/26/22 09:30 Oxygen Delivery Me thod Room Air 06/26/22 08:02 MDM - SOB/Dyspnea Medical Decision Making Patient here with complaints of cough, congestion, shortness of breath over the past 3 weeks or so. Her vital signs are stable. She is satting at 98% on room air. She does have home oxygen she uses only at night. Blood work overall is fairly unremarkable. CXR is abnormal thus CT chest was obtained. Unfortunately it appears patient has a large neoplasm affecting her left upper lobe with mediastinal/lymph node involvement and possible bony mets. Spoke to Dr. Antony who agrees with plan to get her set up with Dr. Lara for bronchoscopy and biopsy and then follow-up with oncology. Patient is already on antibiotics, Trelegy, and steroids. Place her on ipratropium she can also use in addition to her albuterol in her nebulizer. Return to ED precautions given. She can use her home O2 as needed. Chart reviewed and patient discussed with midlevel. Agree with assessment and plan. Lab Data 06/26/22 08:00 06/26/22 08:00 Labs/Radiology: Radiology Impressions Chest X-Ray 06/26/22 07:30 IMPRESSION: Volume loss in the left upper lobe, trauma long segment likely. Potential mediastinal widening and hilar prominence suggest central obstruction. If patient has significant smoking history recommend CT scan of the chest with intravenous contrast to evaluate for left chest neoplasm. Chest CT 06/26/22 08:54 IMPRESSION: 1. Large soft tissue consolidation LEFT upper lobe is a combination of atelectasis and proximal neoplasm encasing the proximal LEFT upper lobe bronchus. LEFT upper lobe bronchial wall thickening to 2.1 cm. Recommend endosc opy for sampling of tumor. 2. Mediastinal and hilar lymphadenopathy. Large clusters of lymph nodes new since 2019. 3. 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 4. Aberrant RIGHT subclavian artery. 5. Prior cholecystectomy. 6. Abnormal LEFT second rib. Possible involvement of the first LEFT rib. Sclerotic with bony expansion. Tumor involvement suspected. Recommend PET/CT imaging. Laboratory Results WBC 15.5 10^3/uL (4.0-10.0) H 06/26/22 08:00 RBC 4.74 10^6/uL (4.1-5.3) 06/26/22 08:00 Hgb 14.2 g/dL (11.5-15.3) 06/26/22 08:00 Hct 43.0 % (37.0-47.0) 06/26/22 08:00 MCV 90.7 fl (81-99) 06/26/22 08:00 MCH 30.0 pg (28.0-34.0) 06/26/22 08:00 MCHC 33.0 g/dL (30.0-36.0) 06/26/22 08:00 RDW 14.3 % (12.1-15.1) 06/26/22 08:00 Plt Count 234 10^3/cmm (130-400) 06/26/22 08:00 MPV 9.0 fL (7.4-10.4) 06/26/22 08:00 Neut % (Auto) 63.2 % 06/26/22 08:00 Lymph % (Auto) 28.7 % 06/26/22 08:00 Villalba % (Auto) 5.5 % 06/26/22 08:00 Eos % (Auto) 1.3 % 06/26/22 08:00 Baso % (Auto) 0.3 % 06/26/22 08:00 Neut # (Auto) 9.84 10^3/uL (1.8-7.7) H 06/26/22 08:00 Lymph # (Auto) 4.5 10^3/uL (0.8-4.8) 06/26/22 08:00 Villalba # (Auto) 0.9 10^3/uL (0.2-0.9) 06/26/22 08:00 Eos # (Auto) 0.2 10^3/uL (0.0-0.8) 06/26/22 08:00 Baso # (Auto) 0.0 10^3/uL (0.0-0.1) 06/26/22 08:00 Nucleated RBC % (auto) 0 % 06/26/22 08:00 Nucleated RBCs # 0.0 /100WBC 06/26/22 08:00 Sodium 138 mmol/L (136-145) 06/26/22 08:00 Potassium 3.1 mmol/L (3.5-5.1) L 06/26/22 08:00 Chloride 98 mmol/L (98-107) 06/26/22 08:00 Carbon Dioxide 29 mmol/L (22-29) 06/26/22 08:00 Anion Gap 14.1 (5-19) 06/26/22 08:00 BUN 10 mg/dL (8-23) 06/26/22 08:00 Creatinine 0.7 mg/dL (0.5-0.9) 06/26/22 08:00 GFR Calculation 84.8 mL/min (90-130) L 06/26/22 08:00 Glucose 107 mg/dL (65-115) 06/26/22 08:00 Calculated Osmolality 286 mOsm/kg (285-295) 06/26/22 08:00 Calcium 9.3 mg/dL (8.5-10.5) 06/26/22 08:00 Total Bilirubin 0.3 mg/dL (0.15-1.2) 06/26/22 08:00 AST 14 U/L (0-32) 06/26/22 08:00 ALT 20 U/L (0-33) 06/26/22 08:00 Alkaline Phosphatase 90 U/L (35-105) 06/26/22 08:00 Total Protein 6.6 g/dL (6.6-8.7) 06/26/22 08:00 Albumin 4.0 g/dL (3.5-5.2) 06/26/22 08:00 Globulin 2.6 g/dL (1.3-4.6) 06/26/22 08:00 Procalcitonin 0.05 ng/mL (0-0.5) 06/26/22 08:00 Nasal Influ A H1 2009 PCR Not detected (NOT DETECT) 06/26/22 08:25 Adenovirus (PCR) Not detected (NOT DETECT) 06/26/22 08:25 C. pneumoniae DNA (PCR) Not detected (NOT DETECT) 06/26/22 08:25 Coronavirus 229E (PCR) Not detected (NOT DETECT) 06/26/22 08:25 Human Metapneumovir PCR Not detected (NOT DETECT) 06/26/22 08:25 Influenza A (H1) PCR Not detected (NOT DETECT) 06/26/22 08:25 Influenza A (H3) PCR Not detected (NOT DETECT) 06/26/22 08:25 Influenza Type A (PCR) Not detected (NOT DETECT) 06/26/22 08:25 Influenza Type B (PCR) Not detected (NOT DETECT) 06/26/22 08:25 M. pneumoniae (PCR) Not detected (NOT DETECT) 06/26/22 08:25 Parainfluenza 1 (PCR) Not detected (NOT DETECT) 06/26/22 08:25 Parainfluenza 2 (PCR) Not detected (NOT DETECT) 06/26/22 08:25 Parainfluenza 3 (PCR) Not detected (NOT DETECT) 06/26/22 08:25 Parainfluenza 4 (PCR) Not detected (NOT DETECT) 06/26/22 08:25 RSV Type A (PCR) Not detected (NOT DETECT) 06/26/22 08:25 RSV Type B (PCR) Not detected (NOT DETECT) 06/26/22 08:25 Entero/Rhino (PCR) Not detected (NOT DETECT) 06/26/22 08:25 SARS-CoV-2 (PCR) Not detected (NOT DETECT) 06/26/22 08:25 Discharge Plan Discharge Patient Disposition: Home Clinical Impression: Lung malignancy Qualifiers: Laterality: left Lung location: overlapping sites Qualified Code(s): C34.82 - 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 Condition: Stable Prescriptions: New ipratropium bromide 0.02 % solution 2.5 ml inhalation Q8H PRN (Reason: shortness of breath or wheezing) Qty: 62.5 0RF No Action bumetanide 1 mg tablet 1 mg PO DAILY Allergy Relief (cetirizine) 10 mg capsule 10 mg PO QDAY lisinopril 2.5 mg tablet 2.5 mg PO QDAY methocarbamol 750 mg tablet 750 mg PO TID spironolactone 50 mg tablet 50 mg PO BID montelukast 10 mg tablet 10 mg PO .BEDTIME atorvastatin 20 mg tablet 40 mg PO QDAY ondansetron HCl [Zofran] 4 mg tablet 4 mg PO Q8H PRN (Reason: nausea and vomiting) Qty: 14 0RF albuterol sulfate 2.5 mg /3 mL (0.083 %) solution for nebulization 2.5 mg INHALATION Q6H hydrocodone-acetaminophen 10-325 mg tablet 1 tab PO Q8H PRN (Reason: pain) 30 Days Qty: 90 0RF Rx Instructions: Fill on or after 02/25/21 hydrocodone-acetaminophen 10-325 mg tablet 1 tab PO Q8H PRN (Reason: pain) 30 Days Qty: 90 0RF Rx Instructions: Fill on or after 03/27/21 pregabalin [Lyrica] 75 mg capsule 75 mg PO TID 30 Days Qty: 90 1RF fluticasone propion-salmeterol [Advair Diskus] 250-50 mcg/dose blister with device 1 inh inhalation BID Qty: 60 0RF Rx Instructions: NEEDS APPT PRIOR TO FURTHER REFILLS fluticasone propionate 50 mcg/actuation spray,suspension See Rx Instructions .ROUTE .COMPLEX Qty: 16 3RF Dose Instruction: Use 1 spray(s) in each nostril twice daily Rx Instructions: Use 1 spray(s) in each nostril twice daily aspirin 325 mg Tablet,Delayed Release (Dr/Ec) 325 mg PO DAILY Qty: 30 0RF Discharge Orders: Discharge ED (Routine); Ordered 06/26/22 Ordered By: Tanya Roman Referrals: Reynold Begum MD [Primary Care Provider] - Activity Restrictions/Additional Instructions: As we discussed you may continue all of your current medications. I have added another medication you can use in your nebulizer. Unfortunately your CT scan today showing findings most likely consistent with lung malignancy/neoplasm. Case management should contact you shortly to set you up with your urgent follow-up appointment with pulmonology. They will also assist you in setting up an appointment with oncology most likely following your lung tumor biopsy/pathology report. You may use your home oxygen as needed for shortness of breath. You need to return to the emergency department for worsening shortness of breath, difficulty breathing, severe chest pains, fevers, generally feeling worse or unwell, or any other concerns you may have. Coding Level of Care Code ED [facility]acer for Alec Luis
[2022-06-26] MEDS: ipratropium-albuterol 3 mL Neb INHALATION (08:02)
[2022-06-26 08:05] LABS: Basophils % 0.3 %; Eosinophils # 0.2 10^3/uL (0.0-0.8); Eosinophils % 1.3 %; Hemoglobin 14.2 g/dL (11.5-15.3); Lymphocytes # 4.5 10^3/uL (0.8-4.8); Lymphocytes % 28.7 %; Mean Corpuscular Volume 90.7 fl (81-99); Monocytes # 0.9 10^3/uL (0.2-0.9); Monocytes % 5.5 %; Neutrophils # 9.84 10^3/uL (1.8-7.7); Neutrophils % 63.2 %; Nucleated Red Blood Cells % 0 %; Platelet Count 234 10^3/cmm (130-400); Red Blood Count 4.74 10^6/uL (4.1-5.3); Red Cell Distribution Width 14.3 % (12.1-15.1); White Blood Count 15.5 10^3/uL (4.0-10.0)
[2022-06-26 08:25] LABS: Alanine Aminotransferase 20 U/L (0-33); Alkaline Phosphatase 90 U/L (35-105); Anion Gap 14.1 (5-19); Aspartate Amino Transferase 14 U/L (0-32); Blood Urea Nitrogen 10 mg/dL (8-23); Calcium 9.3 mg/dL (8.5-10.5); Carbon Dioxide 29 mmol/L (22-29); Chloride 98 mmol/L (98-107); Globulin 2.6 g/dL (1.3-4.6); Glomerular Filtration Rate 84.8 mL/min (90-130); Glucose 107 mg/dL (65-115); Osmolality Calculated 286 mOsm/kg (285-295); Potassium 3.1 mmol/L (3.5-5.1); Sodium 138 mmol/L (136-145); Total Bilirubin 0.3 mg/dL (0.15-1.2); Total Protein 6.6 g/dL (6.6-8.7)
[2022-06-26 08:32] LABS: Procalcitonin 0.05 ng/mL (0-0.5)
[2022-06-26] MEDS: potassium chloride ER 20 mEq Tablet 40 MEQ PO (08:34)
--- NOTE | 2022-06-26 08:54 | CT_ITS ---
WS: [id number] CT chest w con* [id number] HISTORY: abnormal CXR; sob TECHNIQUE: Axial imaging performed through the thorax. Coronal and sagittal reformats are submitted. All CT scans at [facility] use at least one of these dose optimization techniques: automated exposure control; mA and/or kV adjustment per patient size (includes targeted exams where dose is mat ched to clinical indication); or iterative reconstruction. CONTRAST: Omnipaque 350; 100 mL IV. DLP: 534.89 mGy.cm COMPARISON: Prior lung screening 08/03/2019, chest radiograph 06/26/2022 Lungs and central airway: Marked abnormal appearance to the lungs is new as compared to a prior CT fr om 2019. Large dense area of consolidation and atelectasis LEFT upper lobe. Wedge-shaped area of cons olidation with enhancement. There is marked bronchial wall thickening in the proximal RIGHT upper lob e bronchus and also involving the proximal LEFT lower lobe bronchus. Bronchial wall thickening measur es up to 2.1 cm with obstructive atelectatic component. Very slight shift of midline structures to th e LEFT. 5 mm nodule RIGHT lung base unchanged since 08/03/2019. Pleura: Very small amount of pleural thickening in the LEFT upper thorax. Heart and pericardium: Normal size heart with no pericardial effusion. Mediastinum and mishel: Numerous enlarged mediastinal and hilar lymph nodes. Abnormal lymph nodes with the largest cluster RIGHT paratracheal extending over a length of 5.2 cm x 2.5 cm. Anterior mediastin al enlarged lymph nodes and para-aortic lymph node. Para-aortic node measures 2.4 x 4.0 cm. Subcarina l lymph node 2.7 x 4.5 cm. Vessels: Normal size aorta with mild atherosclerotic plaque. Aberrant RIGHT subclavian artery courses posterior to the esophagus to the aorta. 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 Chest wall and lower neck: No soft tissue masses. Upper abdomen: Prior cholecystectomy. Osseous structures: Schmorl's nodes defects at L1. Degenerative changes shoulders. Sclerotic changes involving the second LEFT rib. Possible neoplastic involvement. CT/CT chest w con* [id number] IMPRESSION: 1. Large soft tissue consolidation LEFT upper lobe is a combination of atelect asis and proximal neoplasm encasing the proximal LEFT upper lobe bronchus. LEFT upper lobe bronchial wall thickening to 2.1 cm. Recommend endoscopy for sampli ng of tumor. 2. Mediastinal and hilar lymphadenopathy. Large clusters of lymph nodes new si nce 2020. 3. 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 4. Aberrant RIGHT subclavian artery. 5. Prior cholecystectomy. 6. Abnormal LEFT second rib. Possible involvement of the first LEFT rib. Scler otic with bony expansion. Tumor involvement suspected. Recommend PET/CT imaging .
[2022-06-26] MEDS: iohexol 350 mg/mL 500 mL Btl (per mL) IV (09:01)
--- NOTE | 2022-06-26 09:12 | PC.NURSE ---
Pt to CT
[2022-06-26 10:19] LABS: Adenovirus Not Detected (NOT DETECT); Chlamydia Pneumoniae Not Detected (NOT DETECT); Coronavirus 229E,HKU1,NL63,OC4 Not Detected (NOT DETECT); Human Metapneumovirus Not Detected (NOT DETECT); Human Rhinovirus/Enterovirus Not Detected (NOT DETECT); Influenza A Not Detected (NOT DETECT); Influenza A H1 Not Detected (NOT DETECT); Influenza A H1-2009 Not Detected (NOT DETECT); Influenza A H3 Not Detected (NOT DETECT); Influenza B Not Detected (NOT DETECT); Mycoplasma Pneumoniae Not Detected (NOT DETECT); Parainfluenza Virus Type 1 Not Detected (NOT DETECT); Parainfluenza Virus Type 2 Not Detected (NOT DETECT); Parainfluenza Virus Type 3 Not Detected (NOT DETECT); Parainfluenza Virus Type 4 Not Detected (NOT DETECT); Respiratory Syncytial Virus A Not Detected (NOT DETECT); Respiratory Syncytial Virus B Not Detected (NOT DETECT); SARS-COV-2 Not Detected (NOT DETECT)
--- NOTE | 2022-06-26 14:37 | DCPLANNER ---
Addendum entered by Chitra Lawosn 08/08/22 10:14: appointment cancelled Addendum entered by Chitra Lawson 06/27/22 09:32: Patient has a follow up appointment scheduled for Wednesday, June 29, 2022 at 12:[address] Lara at [facility]. Original Note: manager paid had message to schedule a follow up appointment for patient with pulmonology. manager paid sent patients information to the front office staff at [facility]. Patients information will be printed and reviewed. Clinic will call patient with appointment information. manager paid had message to schedule a follow up appointment for patient with oncology. manager paid sent patients information to the front office staff at oncology. Patients information will be printed and reviewed. Clinic will call patient with appointment information.
== END 2022-06-26 10:52 | disposition home or self-care (01) ==
PROVIDERS: Emergency Provider Physician Assistant; PCP Family Medicine
DX: C34.82 Malignant neoplasm of overlapping sites of left bronchus and lung (principal); Z79.82 Long term (current) use of aspirin; Z20.822 Contact with and (suspected) exposure to COVID-19; J44.9 Chronic obstructive pulmonary disease, unspecified; E11.9 Type 2 diabetes mellitus without complications; E78.5 Hyperlipidemia, unspecified; F17.210 Nicotine dependence, cigarettes, uncomplicated
CPT/HCPCS: 71045; 71260; 80053; 84145; 85025; 87070; 87205; 87486; 87581; 87633; 94640; 96374; 99285; J2930; Q9967